=== PATIENT | female | born 1990 ===

== ENCOUNTER 2020-02-25 07:40 | Inpatient (IN) | payer OTHER ==
--- NOTE | 2020-02-25 08:37 | NUR ---
PT STATES AT THE AGE OF 12 HAD SOME B]PAINT CANS BUT DID NOT INHALE ANY PAINT PRODUCT
[2020-02-25 09:58] LABS: BASOPHILS ABSOLUTE AUTO 0.05 K/mm3 (0.00-0.23); BASOPHILS PERCENT AUTO 0 % (0-2); EOSINOPHILS ABSOLUTE AUTO 0.02 K/mm3 (0.00-0.68); EOSINOPHILS PERCENT AUTO 0 % (0-6); Hematocrit 31.8 % (33.0-51.0); Hemoglobin 10.2 g/dL (11.5-16.0); IMMATURE GRAN ABSOLUTE AUTO 0.05 K/mm3 (0.00-0.10); IMMATURE GRAN PERCENT AUTO 0 % (0-1); LYMPHOCYTES ABSOLUTE AUTO 0.79 K/mm3 (0.84-5.20); LYMPHOCYTES PERCENT AUTO 7 % (21-46); MONOCYTES ABSOLUTE AUTO 0.47 K/mm3 (0.16-1.47); MONOCYTES PERCENT AUTO 4 % (4-13); Mean Corpuscular HGB Conc 32.1 g/dL (31.5-36.5); Mean Corpuscular Volume 81 fL (80-100); Mean Platelet Volume 11.8 fL (9.1-12.4); NEUTROPHILS ABSOLUTE AUTO 10.25 K/mm3 (1.96-9.15); NEUTROPHILS PERCENT AUTO 88 % (41-73); Platelet Count 221 K/mm3 (150-400); RDW Coefficient Variation 14.5 % (11.7-14.2); RDW Standard Deviation 42.4 fL (35.1-46.3); Red Blood Cell Count 3.92 M/mm3 (3.80-5.20); White Blood Cell Count 11.63 K/mm3 (4.00-11.30)
[2020-02-25 10:08] LABS: BASOPHILS ABSOLUTE AUTO 0.04 K/mm3 (0.00-0.23); BASOPHILS PERCENT AUTO 0 % (0-2); EOSINOPHILS ABSOLUTE AUTO 0.03 K/mm3 (0.00-0.68); EOSINOPHILS PERCENT AUTO 0 % (0-6); Hematocrit 31.2 % (33.0-51.0); Hemoglobin 10.2 g/dL (11.5-16.0); IMMATURE GRAN ABSOLUTE AUTO 0.06 K/mm3 (0.00-0.10); IMMATURE GRAN PERCENT AUTO 1 % (0-1); LYMPHOCYTES ABSOLUTE AUTO 0.76 K/mm3 (0.84-5.20); LYMPHOCYTES PERCENT AUTO 6 % (21-46); MONOCYTES ABSOLUTE AUTO 0.51 K/mm3 (0.16-1.47); MONOCYTES PERCENT AUTO 4 % (4-13); Mean Corpuscular HGB 26.4 pg (26.0-34.0); Mean Corpuscular HGB Conc 32.7 g/dL (31.5-36.5); Mean Corpuscular Volume 81 fL (80-100); Mean Platelet Volume 12.1 fL (9.1-12.4); NEUTROPHILS ABSOLUTE AUTO 10.42 K/mm3 (1.96-9.15); NEUTROPHILS PERCENT AUTO 88 % (41-73); Platelet Count 219 K/mm3 (150-400); RDW Coefficient Variation 14.5 % (11.7-14.2); RDW Standard Deviation 42.2 fL (35.1-46.3); Red Blood Cell Count 3.87 M/mm3 (3.80-5.20); White Blood Cell Count 11.82 K/mm3 (4.00-11.30)
--- NOTE | 2020-02-25 12:49 | NUR ---
awake wants to see baby. doesn't remember that baby went to [facility] for exam and stayed because she needed close monitoring. oob to shower
--- NOTE | 2020-02-25 18:30 | NUR ---
1000 ASSUMED CARE OF PATIENT POST DELEVERY. PATIENT IS SLEEPING SOUNDLY, DIFFICULT TO WAKE UP, BUT DOES WAKE FOR FUNDAL MASSAGE
--- NOTE | 2020-02-25 18:31 | NUR ---
1130 WOKE PATIENT FOR FUNDAL MASSAGE AND PAD CHANGE , SHOWED HER THAT HER MEAL TRAY IS AT BEDSIDE
--- NOTE | 2020-02-25 18:32 | NUR ---
1200 PATIENT AWAKE AND ASKING FOR HER BABY. PATIENT OOB TO SHOWER WITH ASSIST BEFORE GOING TO THE NURSERY. INSTRUCTED ON MIN CARE, RN REQUESTED URINE SAMPLE FOR DRUG SCREEN, PATIENT " MISSED THE HAT" UNABLE TO OBTAIN UA
--- NOTE | 2020-02-25 18:33 | NUR ---
1215 TO NST TO VISIT BABY
--- NOTE | 2020-02-25 18:36 | NUR ---
1400 VITAL RECORDS PATIENT HAS A QUESTION ABOUT HAVING HER SAME SEX PARTNER ON THE BABIES CERTIFICATE. VITAL RECORDS CONTACTED VIA PHONE. AND PATIENT WAS INSTRUCTED ON HOE TO FILL OUT THE WORKSHEET
--- NOTE | 2020-02-25 18:37 | NUR ---
1200 WHEN PATIENT GOT OOB TO SHOWER AND REMOVED HER CLOTHING, A PILL IN A PREMADE PACKAGE FELL INTO THE BATHTUB. THE MEDICATION WAS A FLEA AND TIC MEDICATION. I QUESTIONED THE PATIENT AND SHE STATED THAT HER DOG HAS FLEAS AND THE PILL WAS FOR THE DOG
--- NOTE | 2020-02-25 18:39 | NUR ---
1500 PATIENT AND S/O HAVE QUESTIONS ABOUT BEING ABLE TO LEAVE THE HOSPITAL. PATIENT WANTS TO "LEAVE PRESLEY HERE AND COME SEE HER BUT SHW WANTS TO BE ABLE TO COME AND GO SHE PLEASES BECAUSE SHE NEEDS TO BE WITH HER HORTICULTURE SUPERINTENDENT "JIM" STATING THAT SHE TRUSTS HER MORE SHE DOES US.
--- NOTE | 2020-02-25 18:41 | NUR ---
0425 CSD HERE TO SEE PATIENT
--- NOTE | 2020-02-25 19:10 | NUR ---
1600 PATIENT AND S/O AGAIN QUESTIONING ME ABOUT WHY THE BABY CAN'T BE IN THE ROOM WITH HER AND BREAST FEED. EXPLAINED TO THEM THAT THE BABY IS SICK, SHE IS SPITTING UP LARGE AMTS OF MUCUS AND CANT FEED FOR FEAR OF ASPIRATION. PATIENT WANTS TO BE ABLE TO HANG OUT WITH HER FRIENDS. WE DISCUSSED TO CURRENT VISITOR POLICY DUE TO THE COVID 19 VIRUS AND THAT SHW COULDN'T BE GOING OUT TO VISIT WITH FRIENDS AND THEN GOING TO VISIT BABY AND RISK EXPOSING HER
--- NOTE | 2020-02-25 19:14 | NUR ---
1322 PATIENT AND S/O SPOKE WITH JUANITO REYNA AND DR Brenda MONTERO ABOUT BEING ABLE TO LEAVE THE HOSPITAL AND COME BACK. IT WAS MADE CLEAR TO THE PATIENT THAT SHE CAN CALL AND CHECK ON BABY BUT CANNOT COME BACK ON THE NOR WOULD HER S/O BE ABLE TO VISIT THE BABY HERE IN THE HOSPITAL
--- NOTE | 2020-02-25 19:18 | NUR ---
1729 PATIENT INFORMED RN THAT SHW HAD CALLED A [facility] AND WOULD BE LEAVING THE HOSPITAL. SHE UNDERSTANDS THAT SHE IS NOT ALLOWED BACK ON THE UNIT . RN INFORMED Masha ALVARADO CNM OF PATIENTS DESIRE TO LEAVE AGAINST MEDICAL ADVICE. PATIENT SIGNED AMA FORM BUT CROSSED OUT AND INITALED THE "RISK" THAT STATED SEPARATION FROM BABY. STATING THAT SHE WASN'T GOING TO BE FROM HER PATIENT WENT " OUTSIDE" AND TOLD RN SHE WOULD BE BACK FOR HER DISCHARGE INSTRUCTIONS AND THE FOOTPRINT CARD. PATIENT HADN'T RETURNED BY THE END OF THIS SHIFT (1919) AND WAS DISCHARGED OUT OF THE COMPUTER
[2020-02-26 08:11] LABS: HIV SCREEN 4TH GENERATION WRFX Non Reactive (Non Reactive)
== END 2020-02-25 17:30 | disposition home or self-care (01) | DRG 806 ==
LOC: OBS 07:40 → BC 08:02 → EDBD 08:02 → BC 17:30
PROVIDERS: ADMIT Advanced Practice Midwife
PROC: 10E0XZZ Delivery of Products of Conception, External Approach (ICD-10-PCS; principal; 2020-02-25)
PROC: 0UQMXZZ Repair Vulva, External Approach (ICD-10-PCS; 2020-02-25)
PROC: 0UQGXZZ Repair Vagina, External Approach (ICD-10-PCS; 2020-02-25)
PROC: 6A550ZT Pheresis of Cord Blood Stem Cells, Single (ICD-10-PCS; 2020-02-25)
DX: O34.219 Maternal care for unspecified type scar from previous cesarean delivery (principal); O71.4 Obstetric high vaginal laceration alone; Z37.0 Single live birth; Z3A.39 39 weeks gestation of pregnancy; O69.81X0 Labor and delivery complicated by cord around neck, without compression, not applicable or unspecified; O76 Abnormality in fetal heart rate and rhythm complicating labor and delivery; O70.0 First degree perineal laceration during delivery
CPT/HCPCS: 36415; 85025; 86317; 86592; 86762; 86803; 86850; 86900; 86901; 87081; 87389; 87653